=== PATIENT | male | born 1965 | race African-American/Black ===

== ENCOUNTER 2023-11-27 17:52 | Emergency (ER) | payer MEDICAID ==
[~2023-11-27] VITALS: Ht 137.2 cm; Wt 125.0 kg
[~2023-11-27 17:52] MED LIST: AMLO10TA4 PO; AMLO10TA80 MT; ASPI-1497 MT; BISO5TAB13 MT; CLOP75TA33 MT; COR12 PO; FURO-151 PO; FURO40TA5 MT; GABA-529 MT; HYDR100T11 MT; HYDR25TA78 PO; ISOS30TA91 MT; LOSA100T33 MT; LOSA25TA26 PO; NITR0.4T49 SL; PANT40TA51 MT; ROSU20TA2 MT; SEVE800T8 MT
[2023-11-27 17:54] VITALS: O2SAT 98
[2023-11-27] MEDS: MORPHINE SULFATE 4 MG/ML INJ (FOR IV/IM USE) IV ONE (18:54)
[2023-11-27] MEDS: ONDANSETRON HCL 4MG/2ML INJ IV ONE (18:54)
[2023-11-27 19:00] LABS: CHLORIDE 99 mEq/L (98-107); POTASSIUM 4.3 mEq/L (3.5-5.1); SODIUM 135 mEq/L (136-145)
[2023-11-27 19:01] LABS: CALCIUM 8.8 mg/dL (8.7-10.4); CARBON DIOXIDE 26 mEq/L (21-32)
[2023-11-27 19:06] LABS: GLUCOSE 142 mg/dL (70-105); UREA NITROGEN BLOOD 42 mg/dL (9-23)
[2023-11-27 19:10] LABS: CREATININE 6.4 mg/dL (0.6-1.3); TROPONIN I HIGH SENSITIVITY 100 ng/L (3.0-53)
[2023-11-27 19:20] LABS: HEMATOCRIT. 30.5 % (42.0-52.0); HEMOGLOBIN. 9.9 g/dL (14.0-18.0); MEAN CORPUSCULAR HEMOGLOBIN 27.9 pg (28.0-32.0); MEAN CORPUSCULAR HGB CONC 32.3 g/dL (31.0-37.0); MEAN CORPUSCULAR VOLUME 86.1 fL (80.0-94.0); MEAN PLATELET VOLUME 8.9 fl (7.4-10.4); PLATELET 163 x1000/uL (130-400); RED BLOOD CELL COUNT 3.54 mill/uL (4.7-6.1); WHITE BLOOD COUNT 8.7 x1000/uL (4.5-11.0)
[2023-11-27 19:22] LABS: DIFFERENTIAL COMMENT 1
[2023-11-27 19:30] LABS: INR 1.2; PARTIAL THROMBOPLASTIN TIME 30.2 sec (23.4-31.0)
[2023-11-27 19:42] LABS: ANISOCYTOSIS 2+; PLATELET ESTIMATE NORMAL
[2023-11-27 20:45] LABS: TROPONIN I HIGH SENSITIVITY 100 ng/L (3.0-53)
[2023-11-27 22:18] VITALS: BP 159/89; PULSE 67; RESP 15; TEMP 37.00296; O2SAT 100
[2023-11-28] MEDS ORDERED: CLONIDINE 0.1MG TABLET PO PRN (00:30)
[2023-11-28] MEDS ORDERED: DIPHENHYDRAMINE 50MG/ML VIAL IV PRN (00:30)
[2023-11-28] MEDS ORDERED: ONDANSETRON HCL 4MG/2ML INJ IV PRN (00:30)
[2023-11-28] MEDS ORDERED: ZOLPIDEM TARTRATE 5MG TABLET PO PRN (00:30)
[2023-11-28] MEDS ORDERED: ACETAMINOPHEN 325MG TABLET PO PRN ×2 (00:30)
[2023-11-28] MEDS ORDERED: SODIUM CHLORIDE 0.9% 3ML FLUSH IVF SCH (06:00)
[2023-11-28] MEDS ORDERED: CARVEDILOL 12.5MG TABLET PO SCH (09:00)
[2023-11-28] MEDS ORDERED: TAMSULOSIN HCL 0.4MG SR CAPSULE PO SCH (09:00)
[2023-11-28] MEDS ORDERED: LOSARTAN 50 MG TABLET PO SCH (09:00)
[2023-11-28] MEDS ORDERED: ISOSORBIDE MONONITRATE 30MG TABLET SR 24HR PO SCH (09:00)
[2023-11-28] MEDS ORDERED: ASPIRIN 81MG EC TABLET PO SCH (09:00)
[2023-11-28] MEDS ORDERED: ATORVASTATIN CALCIUM 20MG TABLET PO SCH (21:00)
== END 2023-11-27 22:25 | disposition short-term general hospital (02) ==
LOC: ER 17:52
DX: R07.89 Other chest pain (principal); J81.0 Acute pulmonary edema; N18.6 End stage renal disease; I50.9 Heart failure, unspecified; Z99.2 Dependence on renal dialysis; Z79.899 Other long term (current) drug therapy; Z95.1 Presence of aortocoronary bypass graft; Z79.02 Long term (current) use of antithrombotics/antiplatelets; Z79.82 Long term (current) use of aspirin
CPT/HCPCS: 80048; 83880; 83690; 85025; 85610; 85730; 84484; 36415; 71045; 93005; 96374; 96375; 99291; J2405; J2270; Z7610

== ENCOUNTER 2024-01-14 18:13 | Inpatient (IN) | payer MEDICAID ==
[~2024-01-14] VITALS: Ht 152.4 cm; Wt 90.7 kg
[2024-01-14] MEDS: PIPERACILLIN/TAZO 3.375G/50ML 50 ML IV ONE (19:24)
[2024-01-14 19:27] VITALS: RESP 16
[2024-01-14 19:36] LABS: HEMATOCRIT. 31.8 % (42.0-52.0); MEAN CORPUSCULAR HGB CONC 31.4 g/dL (31.0-37.0); MEAN CORPUSCULAR VOLUME 82.8 fL (80.0-94.0); MEAN PLATELET VOLUME 8.6 fl (7.4-10.4); PLATELET 199 x1000/uL (130-400); RED BLOOD CELL COUNT 3.85 mill/uL (4.7-6.1); WHITE BLOOD COUNT 5.5 x1000/uL (4.5-11.0)
[2024-01-14 19:38] LABS: BG BASE EXCESS -1.5 mmol/L (-2.0-3.0); BG CARBOXYHEMOGLOBIN 0.6 % (0.5-1.5); BG DEOXYHEMOGLOBIN 22.2 % (0.0-5.0); BG FRACTION INSPIRED OXYGEN 60; BG HCO3 ACT 25.7 mmol/L (21.0-28.0); BG METHEMOGLOBIN 0.3 % (0.5-1.5); BG OXYGEN SATURATION 77.6 % (94.0-98.0); BG OXYHEMOGLOBIN 76.9 % (94.0-98.0); BG PCO2 55.8 mmHg (35.0-48.0); BG PH 7.282 (7.350-7.450); BG SAMPLE SITE RIGHT RADIAL; BG TOTAL HEMOGLOBIN 10.8 g/dL (13.5-17.5); BG VENT MODE MASK - BIPAP
[2024-01-14 19:39] LABS: DIFFERENTIAL COMMENT 1
[2024-01-14 19:40] LABS: CHLORIDE 100 mEq/L (98-107); POTASSIUM 4.8 mEq/L (3.5-5.1); SODIUM 139 mEq/L (136-145)
[2024-01-14 19:41] LABS: CLARITY URINE TURBID (CLEAR); COLOR URINE ORANGE (YELLOW); GLUCOSE URINE NEGATIVE (NEGATIVE); KETONES URINE NEGATIVE (NEGATIVE); LEUKOCYTE ESTERASE URINE 3+ (NEGATIVE); NITRITE URINE NEGATIVE (NEGATIVE); OCCULT BLOOD URINE 3+ (NEGATIVE); PH URINE >=9.0 (4.5-8.0); PROTEIN URINE 4+ (NEGATIVE); SPECIFIC GRAVITY URINE 1.019 (1.005-1.030)
[2024-01-14 19:41] LABS: CALCIUM 7.7 mg/dL (8.7-10.4); CARBON DIOXIDE 30 mEq/L (21-32)
[2024-01-14 19:45] LABS: INR 1.2; PARTIAL THROMBOPLASTIN TIME 30.3 sec (23.4-31.0)
[2024-01-14 19:46] LABS: GLUCOSE 140 mg/dL (70-105); UREA NITROGEN BLOOD 76 mg/dL (9-23)
[2024-01-14 19:48] LABS: ALANINE AMINOTRANSFERASE 19 IU/L (10-49); ALBUMIN 4.1 g/dL (3.2-4.8); ASPARTATE AMINOTRANSFERASE 19 IU/L (<34); BILIRUBIN DIRECT 0.1 mg/dL (<=3.0); BILIRUBIN TOTAL 0.3 mg/dL (0.1-1.0)
[2024-01-14 19:49] LABS: PROTEIN TOTAL 8.3 g/dL (6.0-8.3)
[2024-01-14 19:50] VITALS: RESP 16
[2024-01-14 19:57] LABS: HYPOCHROMASIA 2+; MICROCYTOSIS 2+; PLATELET ESTIMATE NORMAL; TARGET CELLS 1+
[2024-01-14 20:07] LABS: BACTERIA URINE 2+; RBC URINE 15-25 /hpf (0-2); SQUAMOUS EPITHELIAL CELL URINE 2+ /lpf (RARE/1+); TRIPLE PHOSPHATE CRYSTAL URINE 2+ /lpf; WBC URINE 25-50 /hpf (0-2)
[2024-01-14 20:42] LABS: CREATININE 8.1 mg/dL (0.6-1.3)
[2024-01-14 20:43] LABS: TROPONIN I HIGH SENSITIVITY 80 ng/L (3.0-53)
[2024-01-14] MEDS: VANCOMYCIN 1G PREMIX 200 ML IV ONE (21:12)
[2024-01-14] MEDS ORDERED: CLONIDINE 0.1MG TABLET PO PRN (21:45)
[2024-01-14] MEDS ORDERED: IPRATROPIUM/ALBUTEROL 0.5-3(2.5)MG/3ML NEB HHN PRN (21:45)
[2024-01-14] MEDS ORDERED: DEXTROSE 50% WATER 50ML SYRINGE IV PRN (21:45)
[2024-01-14] MEDS ORDERED: ONDANSETRON HCL 4MG/2ML INJ IV PRN (21:45)
[2024-01-14] MEDS ORDERED: ACETAMINOPHEN 325MG TABLET PO PRN ×2 (21:45)
[2024-01-14 22:10] LABS: BG BASE EXCESS 1.3 mmol/L (-2.0-3.0); BG DEOXYHEMOGLOBIN 0.2 % (0.0-5.0); BG FRACTION INSPIRED OXYGEN 100; BG HCO3 ACT 27.2 mmol/L (21.0-28.0); BG METHEMOGLOBIN 0.1 % (0.5-1.5); BG OXYGEN SATURATION 99.8 % (94.0-98.0); BG OXYHEMOGLOBIN 98.7 % (94.0-98.0); BG PCO2 48.9 mmHg (35.0-48.0); BG PH 7.363 (7.350-7.450); BG PO2 214.7 mmHg (83.0-108.0); BG SAMPLE SITE RIGHT RADIAL; BG TOTAL HEMOGLOBIN 11.4 g/dL (13.5-17.5); BG TOTAL RESPIRATORY RATE 16 b/min; BG VENT MODE MASK - BIPAP
[2024-01-14] MEDS ORDERED: NITROGLYCERIN 0.4MG TABLET SL SL PRN (22:15)
[2024-01-14 22:33] VITALS: RESP 21
[2024-01-14 23:04] LABS: IRON 62 ug/dL (65-175)
[2024-01-14 23:05] LABS: LDL CHOLESTEROL 26 mg/dL (5-100); TRIGLYCERIDE 47 mg/dL (0-150)
[2024-01-14 23:06] LABS: CHOLESTEROL 80 mg/dL (<200); HDL CHOLESTEROL 37 mg/dL (>55); PHOSPHORUS 7.2 mg/dL (2.5-4.9)
[2024-01-14 23:07] LABS: TOTAL IRON BINDING CAPACITY 304 ug/dl (250-425)
[2024-01-14 23:09] LABS: T4 FREE 1.13 ng/dL (0.89-1.76); THYROID STIMULATING HORMONE 1.67 uIU/mL (0.55-4.78)
[2024-01-14] MEDS: FUROSEMIDE 40MG/4ML VIAL IVP NR (23:13)
[2024-01-15] VITALS (11 sets, daily range): BP systolic 139–162; BP diastolic 66–92; PULSE 73–81; RESP 10–21; TEMP 36.6696–37.16964; O2SAT 92–100
[2024-01-15 02:36] LABS: TROPONIN I HIGH SENSITIVITY 95 ng/L (3.0-53)
[2024-01-15 03:27] LABS: FERRITIN 725 ng/mL (22-322); FOLIC ACID (FOLATE) SERUM 4.24 ng/mL (>5.38)
[2024-01-15 03:28] LABS: VITAMIN B12 SERUM 177 pg/mL (211-911)
[2024-01-15 04:36] LABS: HEMATOCRIT 32.6 % (42.0-52.0); MEAN CORPUSCULAR HEMOGLOBIN 25.6 pg (28.0-32.0); MEAN CORPUSCULAR HGB CONC 30.7 g/dL (31.0-37.0); MEAN CORPUSCULAR VOLUME 83.4 fL (80.0-94.0); PLATELET 177 x1000/uL (130-400); RED CELL DISTRIBUTION WIDTH 21.3 % (11.6-14.6); WHITE BLOOD COUNT 5.1 x1000/uL (4.5-11.0)
[2024-01-15 04:46] LABS: POTASSIUM 4.9 mEq/L (3.5-5.1)
[2024-01-15 04:48] LABS: CALCIUM 7.4 mg/dL (8.7-10.4)
[2024-01-15 04:58] LABS: CREATININE 7.9 mg/dL (0.6-1.3)
[2024-01-15 06:07] LABS: HEMATOCRIT. 33.2 % (42.0-52.0); HEMOGLOBIN. 10.3 g/dL (14.0-18.0); MEAN CORPUSCULAR HEMOGLOBIN 25.8 pg (28.0-32.0); MEAN CORPUSCULAR HGB CONC 30.9 g/dL (31.0-37.0); MEAN CORPUSCULAR VOLUME 83.7 fL (80.0-94.0); MEAN PLATELET VOLUME 8.2 fl (7.4-10.4); PLATELET 182 x1000/uL (130-400); RED BLOOD CELL COUNT 3.97 mill/uL (4.7-6.1); RED CELL DISTRIBUTION WIDTH 21.3 % (11.6-14.6); WHITE BLOOD COUNT 6.3 x1000/uL (4.5-11.0)
[2024-01-15 06:16] LABS: DIFFERENTIAL COMMENT 1
[2024-01-15 07:01] LABS: PLATELET ESTIMATE NORMAL
[2024-01-15] MEDS: INSULIN LISPRO 100 UNITS/ML SUBCUT SCH (08:20)
[2024-01-15] MEDS ORDERED: ENOXAPARIN 30MG/0.3ML SYR SUBCUT SCH (09:00)
[2024-01-15] MEDS ORDERED: PIPERACILLIN/TAZO 3.375G/50ML 50 ML IV SCH (09:00)
[2024-01-15 09:12] LABS: BG BASE EXCESS -2.8 mmol/L (-2.0-3.0); BG CARBOXYHEMOGLOBIN 0.3 % (0.5-1.5); BG DEOXYHEMOGLOBIN 1.4 % (0.0-5.0); BG FRACTION INSPIRED OXYGEN 70; BG HCO3 ACT 24.7 mmol/L (21.0-28.0); BG METHEMOGLOBIN 0.3 % (0.5-1.5); BG OXYGEN SATURATION 98.6 % (94.0-98.0); BG PCO2 56.2 mmHg (35.0-48.0); BG PH 7.261 (7.350-7.450); BG PO2 128.8 mmHg (83.0-108.0); BG SAMPLE SITE RIGHT BRACHIAL; BG VENT MODE MASK - BIPAP
[2024-01-15] MEDS: BLOOD SUGAR DIAGNOSTIC STRIP TEST SCH (09:41)
[2024-01-15] MEDS: GABAPENTIN 100MG CAPSULE PO SCH (11:18)
[2024-01-15] MEDS: FUROSEMIDE 40MG/4ML VIAL IVP SCH (11:18)
[2024-01-15] MEDS: HYDRALAZINE HCL 100MG TABLET PO SCH (11:18)
[2024-01-15] MEDS: ASPIRIN 81MG EC TABLET PO SCH (11:18)
[2024-01-15] MEDS: SEVELAMER CARBONATE 800 MG TABLET PO SCH (11:18)
[2024-01-15] MEDS: ISOSORBIDE MONONITRATE 30MG TABLET SR 24HR PO SCH (11:19)
[2024-01-15] MEDS: AMLODIPINE 10MG TABLET PO SCH (11:56)
[2024-01-15] MEDS: LOSARTAN 100 MG TABLET PO SCH (11:57)
[2024-01-15] MEDS: PANTOPRAZOLE 40MG DR TABLET PO SCH (11:57)
[2024-01-15] MEDS: IPRATROPIUM/ALBUTEROL 0.5-3(2.5)MG/3ML NEB HHN SCH (12:00)
[2024-01-15] MEDS: ENOXAPARIN 30MG/0.3ML SYR SUBCUT SCH (12:26)
[2024-01-15 12:27] LABS: HEPATITIS B SURFACE ANTIGEN NEGATIVE (Negative)
[2024-01-15 12:48] LABS: HEPATITIS A AB IGM NEGATIVE (Negative); HEPATITIS B CORE AB IGM NEGATIVE (Negative)
[2024-01-15 12:49] LABS: HEPATITIS C AB NON REACTIVE (Neg) (Negative)
[2024-01-15] MEDS: PIPERACILLIN/TAZO 3.375G/100ML 100 ML IV SCH (15:11)
[2024-01-15] MEDS: FOLIC ACID/VITAMIN B COMP W-C TABLET PO SCH (18:27)
[2024-01-15] MEDS: ATORVASTATIN CALCIUM 40MG TABLET PO SCH (21:55)
[2024-01-16] VITALS (22 sets, daily range): BP systolic 93–162; BP diastolic 54–96; PULSE 75–89; RESP 11–20; TEMP 36.50292–37.05852; O2SAT 64–100
[2024-01-16 05:30] LABS: HEMATOCRIT. 31.3 % (42.0-52.0); HEMOGLOBIN. 9.6 g/dL (14.0-18.0); MEAN CORPUSCULAR HEMOGLOBIN 25.8 pg (28.0-32.0); MEAN CORPUSCULAR HGB CONC 30.5 g/dL (31.0-37.0); MEAN CORPUSCULAR VOLUME 84.4 fL (80.0-94.0); MEAN PLATELET VOLUME 8.4 fl (7.4-10.4); PLATELET 161 x1000/uL (130-400); RED BLOOD CELL COUNT 3.71 mill/uL (4.7-6.1); WHITE BLOOD COUNT 5.6 x1000/uL (4.5-11.0)
[2024-01-16 05:36] LABS: POTASSIUM 5.5 mEq/L (3.5-5.1)
[2024-01-16 05:37] LABS: CALCIUM 7.5 mg/dL (8.7-10.4)
[2024-01-16 05:58] LABS: CREATININE 8.9 mg/dL (0.6-1.3)
[2024-01-16 06:10] LABS: DIFFERENTIAL COMMENT 1
[2024-01-16] MEDS ORDERED: SODIUM CHLORIDE 0.9% 250 ML IV NR (14:30)
[2024-01-16] MEDS: CLOPIDOGREL 75MG TABLET PO SCH (14:32)
[2024-01-16] MEDS: METOCLOPRAMIDE HCL 10MG/2ML VIAL IV NR (14:40)
[2024-01-17 06:44] LABS: ANISOCYTOSIS 2+; PLATELET ESTIMATE NORMAL
== END 2024-01-16 23:00 | disposition home or self-care (01) | DRG 194 ==
LOC: ER 18:13 → EDBEDREQ 18:46 → MICUSO 20:55 → EDBEDREQTM 20:58 → EDBEDREQ 20:58 → 6EST 01-15 09:52 → 5EST 01-15 10:05
PROVIDERS: ADMIT Internal Medicine; ATTEND Internal Medicine
PROC: 5A09357 Assistance with Respiratory Ventilation, Less than 24 Consecutive Hours, Continuous Positive Airway Pressure (ICD-10-PCS; 2024-01-14)
PROC: 5A1D70Z Performance of Urinary Filtration, Intermittent, Less than 6 Hours Per Day (ICD-10-PCS; principal; 2024-01-16)
DX: I13.2 Hypertensive heart and chronic kidney disease with heart failure and with stage 5 chronic kidney disease, or end stage renal disease (principal); J96.01 Acute respiratory failure with hypoxia; K56.609 Unspecified intestinal obstruction, unspecified as to partial versus complete obstruction; I21.A1 Myocardial infarction type 2; N18.6 End stage renal disease; D63.1 Anemia in chronic kidney disease; E66.2 Morbid (severe) obesity with alveolar hypoventilation; E11.22 Type 2 diabetes mellitus with diabetic chronic kidney disease; E11.51 Type 2 diabetes mellitus with diabetic peripheral angiopathy without gangrene; Z20.822 Contact with and (suspected) exposure to COVID-19; I50.23 Acute on chronic systolic (congestive) heart failure; N39.0 Urinary tract infection, site not specified; I45.10 Unspecified right bundle-branch block; E53.8 Deficiency of other specified B group vitamins; J96.02 Acute respiratory failure with hypercapnia; Z68.43 Body mass index [BMI] 50.0-59.9, adult; E11.65 Type 2 diabetes mellitus with hyperglycemia; I25.10 Atherosclerotic heart disease of native coronary artery without angina pectoris; Z99.2 Dependence on renal dialysis; Z89.512 Acquired absence of left leg below knee; Z89.511 Acquired absence of right leg below knee; Z79.02 Long term (current) use of antithrombotics/antiplatelets; Z95.1 Presence of aortocoronary bypass graft; Z79.82 Long term (current) use of aspirin; Z79.84 Long term (current) use of oral hypoglycemic drugs; Z79.899 Other long term (current) drug therapy; Z99.3 Dependence on wheelchair
CPT/HCPCS: 36415; 36600; 71045; 80048; 80061; 80076; 81003; 82375; 82607; 82728; 82746; 82805; 82962; 83036; 83540; 83550; 83605; 83735; 83880; 84100; 84145; 84439; 84443; 84484; 85025; 85027; 86705; 86709; 87077; 87186; 87340; 87426; 90935; 93005; 93306; 94660; 99291; J1650; J1815; J1940; J2543; J2765; J3370

== ENCOUNTER 2024-02-17 01:48 | Inpatient (IN) | payer MEDICARE, MEDICAID ==
[2024-02-17] VITALS (14 sets, daily range): BP systolic 132–185; BP diastolic 74–110; PULSE 69–87; RESP 18–24; TEMP 36.418–37.11408; O2SAT 90–100
[~2024-02-17] VITALS: Ht 137.2 cm; Wt 122.9 kg
[2024-02-17 05:32] LABS: CHLORIDE 101 mEq/L (98-107); SODIUM 138 mEq/L (136-145)
[2024-02-17 05:33] LABS: CALCIUM 7.7 mg/dL (8.7-10.4); CARBON DIOXIDE 24 mEq/L (21-32)
[2024-02-17 05:38] LABS: GLUCOSE 101 mg/dL (70-105); UREA NITROGEN BLOOD 100 mg/dL (9-23)
[2024-02-17 05:47] LABS: ETHANOL BLOOD < 10 mg/dL (<10)
[2024-02-17 05:49] LABS: POTASSIUM 7.8 mEq/L (3.5-5.1)
[2024-02-17 05:50] LABS: CREATININE 10.8 mg/dL (0.6-1.3); TROPONIN I HIGH SENSITIVITY 73 ng/L (3.0-53)
[2024-02-17 06:06] LABS: BASOPHILS % 0.8 % (0.0-2.0); EOSINOPHILS % 1.1 % (0.0-5.0); HEMATOCRIT. 32.7 % (42.0-52.0); LYMPHOCYTES % 10.8 % (20.0-50.0); MEAN CORPUSCULAR HEMOGLOBIN 25.7 pg (28.0-32.0); MEAN CORPUSCULAR HGB CONC 30.5 g/dL (31.0-37.0); MEAN CORPUSCULAR VOLUME 84.1 fL (80.0-94.0); MEAN PLATELET VOLUME 8.6 fl (7.4-10.4); MONOCYTES % 14.5 % (2.0-8.0); NEUTROPHILS % 72.8 % (40.0-76.0); PLATELET 201 x1000/uL (130-400); RED BLOOD CELL COUNT 3.88 mill/uL (4.7-6.1); RED CELL DISTRIBUTION WIDTH 21.4 % (11.6-14.6); WHITE BLOOD COUNT 6.6 x1000/uL (4.5-11.0)
[2024-02-17] MEDS: SODIUM ZIRCONIUM CYCLOSILICATE 10GM/PACKET PO NR (07:00)
[2024-02-17] MEDS: FUROSEMIDE 40MG/4ML VIAL IV NR (07:00)
[2024-02-17] MEDS: SODIUM BICARBONATE 8.4% 50MEQ/50ML SYR IV NR (07:01)
[2024-02-17] MEDS: DEXTROSE 50% WATER 50ML SYRINGE IV NR (07:01)
[2024-02-17] MEDS: INSULIN REGULAR (HUMULIN R) 1000UNITS/10ML VIAL IV NR (07:03)
[2024-02-17] MEDS: ASPIRIN 325MG EC TABLET PO NR (07:03)
[2024-02-17] MEDS: CALCIUM GLUCONATE 100MG/ML 10ML VIAL IV NR (07:04)
[2024-02-17 11:12] LABS: HEMATOCRIT. 32.5 % (42.0-52.0); HEMOGLOBIN. 9.7 g/dL (14.0-18.0); MEAN CORPUSCULAR HEMOGLOBIN 25.9 pg (28.0-32.0); MEAN CORPUSCULAR VOLUME 86.2 fL (80.0-94.0); MEAN PLATELET VOLUME 7.9 fl (7.4-10.4); PLATELET 175 x1000/uL (130-400); RED BLOOD CELL COUNT 3.77 mill/uL (4.7-6.1); RED CELL DISTRIBUTION WIDTH 20.9 % (11.6-14.6); WHITE BLOOD COUNT 7.1 x1000/uL (4.5-11.0)
[2024-02-17 11:14] LABS: DIFFERENTIAL COMMENT 1
[2024-02-17 11:38] LABS: ANISOCYTOSIS 2+; PLATELET ESTIMATE NORMAL
[2024-02-17] MEDS: IPRATROPIUM/ALBUTEROL 0.5-3(2.5)MG/3ML NEB HHN SCH (11:45)
[2024-02-17] MEDS ORDERED: CLONIDINE 0.1MG TABLET PO PRN (11:45)
[2024-02-17] MEDS ORDERED: IPRATROPIUM/ALBUTEROL 0.5-3(2.5)MG/3ML NEB HHN PRN ×3 (11:45→12:30)
[2024-02-17] MEDS ORDERED: ACETAMINOPHEN 325MG TABLET PO PRN (11:45)
[2024-02-17] MEDS ORDERED: ONDANSETRON HCL 4MG/2ML INJ IV PRN (11:45)
[2024-02-17 11:49] LABS: HEPATITIS B SURFACE ANTIGEN NEGATIVE (Negative)
[2024-02-17] MEDS ORDERED: DEXTROSE 50% WATER 50ML SYRINGE IV PRN (12:00)
[2024-02-17] MEDS ORDERED: IPRATROPIUM/ALBUTEROL 0.5-3(2.5)MG/3ML NEB HHN SCH (12:00)
[2024-02-17] MEDS: SODIUM CHLORIDE 3% FOR INH 15ML NEB INH NR (12:00)
[2024-02-17] MEDS: FUROSEMIDE 40MG/4ML VIAL IVP NR (12:04)
[2024-02-17 12:09] LABS: HEPATITIS A AB IGM NEGATIVE (Negative)
[2024-02-17 12:10] LABS: HEPATITIS B CORE AB IGM NEGATIVE (Negative); HEPATITIS C AB NON REACTIVE (Neg) (Negative)
[2024-02-17] MEDS: IPRATROPIUM/ALBUTEROL 0.5-3(2.5)MG/3ML NEB HHN NR (12:10)
[2024-02-17] MEDS ORDERED: BLOOD SUGAR DIAGNOSTIC STRIP TEST SCH (13:00)
[2024-02-17 13:39] LABS: CREATINE KINASE MB FRACTION 2.5 ng/mL (0.5-3.6)
[2024-02-17 14:02] LABS: BG BASE EXCESS -9.1 mmol/L (-2.0-3.0); BG CARBOXYHEMOGLOBIN 1.2 % (0.5-1.5); BG FRACTION INSPIRED OXYGEN 36; BG HCO3 ACT 19.4 mmol/L (21.0-28.0); BG METHEMOGLOBIN 0.3 % (0.5-1.5); BG OXYGEN SATURATION 93.9 % (94.0-98.0); BG OXYHEMOGLOBIN 92.5 % (94.0-98.0); BG PCO2 53.8 mmHg (35.0-48.0); BG PH 7.174 (7.350-7.450); BG PO2 85.5 mmHg (83.0-108.0); BG SAMPLE SITE RIGHT RADIAL; BG TOTAL HEMOGLOBIN 11.1 g/dL (13.5-17.5); BG VENT MODE NASAL CANNULA
[2024-02-17 14:59] LABS: CHLORIDE 103 mEq/L (98-107); SODIUM 139 mEq/L (136-145)
[2024-02-17 15:00] LABS: CARBON DIOXIDE 18 mEq/L (21-32)
[2024-02-17 15:01] LABS: CALCIUM 7.6 mg/dL (8.7-10.4)
[2024-02-17 15:05] LABS: GLUCOSE 77 mg/dL (70-105)
[2024-02-17 15:06] LABS: UREA NITROGEN BLOOD 96 mg/dL (9-23)
[2024-02-17 15:08] LABS: CREATINE KINASE 112 IU/L (46-171); TROPONIN I HIGH SENSITIVITY 92 ng/L (3.0-53)
[2024-02-17 15:10] LABS: POTASSIUM 7.2 mEq/L (3.5-5.1)
[2024-02-17 15:12] LABS: CREATININE 11.5 mg/dL (0.6-1.3); PHOSPHORUS 10.5 mg/dL (2.5-4.9)
[2024-02-17] MEDS: BLOOD SUGAR DIAGNOSTIC STRIP TEST SCH (16:40)
[2024-02-17] MEDS: INSULIN LISPRO 100 UNITS/ML SUBCUT SCH (17:10)
[2024-02-17] MEDS: FUROSEMIDE 40MG/4ML VIAL IV SCH (19:07)
[2024-02-17] MEDS: ENOXAPARIN 40MG/0.4ML SYR SUBCUT SCH (19:07)
[2024-02-17 19:54] LABS: INR 1.2; PARTIAL THROMBOPLASTIN TIME 30.4 sec (23.4-31.0); PROTHROMBIN TIME 12.9 sec (9.6-11.0)
[2024-02-17 19:59] LABS: POTASSIUM 6.1 mEq/L (3.5-5.1)
[2024-02-17 20:01] LABS: CALCIUM 8.1 mg/dL (8.7-10.4)
[2024-02-17 20:07] LABS: CREATINE KINASE MB FRACTION 3.1 ng/mL (0.5-3.6)
[2024-02-17 20:40] LABS: CREATININE 9.3 mg/dL (0.6-1.3)
[2024-02-17] MEDS: ATORVASTATIN CALCIUM 40MG TABLET PO SCH (22:37)
[2024-02-17] MEDS: HYDRALAZINE 20MG/ML VIAL IV PRN (22:37)
[2024-02-17] MEDS ORDERED: MIDODRINE HCL 5MG TABLET PO PRN (23:15)
[2024-02-18] VITALS (16 sets, daily range): BP systolic 138–194; BP diastolic 64–107; PULSE 62–89; RESP 11–26; TEMP 36.22512–37.00296; O2SAT 91–100
[2024-02-18] MEDS: CLONIDINE 0.1MG TABLET PO NR (03:02)
[2024-02-18 05:41] LABS: CALCIUM 8.3 mg/dL (8.7-10.4)
[2024-02-18 05:44] LABS: CREATINE KINASE MB FRACTION 2.6 ng/mL (0.5-3.6)
[2024-02-18 05:46] LABS: BASOPHILS % 0.8 % (0.0-2.0); DIFFERENTIAL COMMENT 0; EOSINOPHILS % 0.3 % (0.0-5.0); HEMATOCRIT. 32.6 % (42.0-52.0); HEMOGLOBIN. 9.8 g/dL (14.0-18.0); LYMPHOCYTES % 9.4 % (20.0-50.0); MEAN CORPUSCULAR HEMOGLOBIN 25.7 pg (28.0-32.0); MEAN CORPUSCULAR HGB CONC 30.2 g/dL (31.0-37.0); MEAN CORPUSCULAR VOLUME 85.2 fL (80.0-94.0); MEAN PLATELET VOLUME 8.7 fl (7.4-10.4); MONOCYTES % 14.6 % (2.0-8.0); NEUTROPHILS % 74.9 % (40.0-76.0); PLATELET 183 x1000/uL (130-400); RED BLOOD CELL COUNT 3.82 mill/uL (4.7-6.1); RED CELL DISTRIBUTION WIDTH 21.4 % (11.6-14.6); WHITE BLOOD COUNT 5.8 x1000/uL (4.5-11.0)
[2024-02-18 06:01] LABS: CREATININE 10.3 mg/dL (0.6-1.3)
[2024-02-18 06:03] LABS: POTASSIUM 6.3 mEq/L (3.5-5.1)
[2024-02-18] MEDS: ALBUTEROL (0.083%) 2.5MG/3ML NEB HHN NR (06:30)
[2024-02-18] MEDS: CALCIUM CHLORIDE 1GM/10ML SYR IV NR (07:07)
[2024-02-18] MEDS: SODIUM ZIRCONIUM CYCLOSILICATE 10GM/PACKET PO NR ×2 (07:07→11:36)
[2024-02-18] MEDS ORDERED: PANTOPRAZOLE SODIUM 40 MG/VIAL IV SCH (09:00)
[2024-02-18] MEDS: ASPIRIN 81MG TABLET PO SCH (09:37)
[2024-02-18] MEDS: AMLODIPINE 10MG TABLET PO SCH (09:38)
[2024-02-18 11:08] LABS: BG BASE EXCESS -6.2 mmol/L (-2.0-3.0); BG CARBOXYHEMOGLOBIN 1.4 % (0.5-1.5); BG FRACTION INSPIRED OXYGEN 32; BG HCO3 ACT 20.5 mmol/L (21.0-28.0); BG OXYGEN SATURATION 92.9 % (94.0-98.0); BG OXYHEMOGLOBIN 91.6 % (94.0-98.0); BG PCO2 45.8 mmHg (35.0-48.0); BG PH 7.269 (7.350-7.450); BG PO2 75.8 mmHg (83.0-108.0); BG SAMPLE SITE RIGHT RADIAL; BG VENT MODE NASAL CANNULA
[2024-02-18] MEDS: SODIUM BICARBONATE 8.4% 50MEQ/50ML SYR IV NR (11:36)
[2024-02-18] MEDS: DEXTROSE 50% WATER 50ML SYRINGE IV NR (11:38)
[2024-02-18] MEDS: INSULIN REGULAR (HUMULIN R) 1000UNITS/10ML VIAL IV NR (11:38)
[2024-02-18 13:00] LABS: ALANINE AMINOTRANSFERASE 15 IU/L (10-49); ALBUMIN 3.9 g/dL (3.2-4.8); ASPARTATE AMINOTRANSFERASE 18 IU/L (<34); BILIRUBIN DIRECT 0.1 mg/dL (<=3.0); BILIRUBIN TOTAL 0.3 mg/dL (0.1-1.0); PROTEIN TOTAL 7.9 g/dL (6.0-8.3)
[2024-02-18 13:34] LABS: POTASSIUM 6.2 mEq/L (3.5-5.1); TROPONIN I HIGH SENSITIVITY 225 ng/L (3.0-53)
[2024-02-18] MEDS: HYDRALAZINE HCL 25MG TABLET PO SCH ×2 (14:18→21:11)
[2024-02-18] MEDS ORDERED: ENALAPRIL 0.625 MG in DEXTROSE 5% WATER 49.5 ML IV PRN (19:15)
[2024-02-18] MEDS ORDERED: CLONIDINE 0.2MG TABLET PO PRN (19:15)
[2024-02-18] MEDS ORDERED: ENALAPRIL 1.25MG/ML VIAL 1ML IV PRN (19:30)
[2024-02-18] MEDS: LOSARTAN 25 MG TABLET PO SCH (21:11)
[2024-02-18] MEDS: FAMOTIDINE 20MG TABLET PO SCH (21:11)
[2024-02-18 22:04] LABS: POTASSIUM 5.9 mEq/L (3.5-5.1)
[2024-02-19] VITALS (21 sets, daily range): BP systolic 123–180; BP diastolic 80–134; PULSE 71–89; RESP 13–25; TEMP 36.33624–37.00296; O2SAT 88–100
[2024-02-19 06:54] LABS: CALCIUM 8.2 mg/dL (8.7-10.4)
[2024-02-19 06:55] LABS: HEMATOCRIT. 32.7 % (42.0-52.0); MEAN CORPUSCULAR HGB CONC 30.4 g/dL (31.0-37.0); MEAN CORPUSCULAR VOLUME 85.4 fL (80.0-94.0); MEAN PLATELET VOLUME 8.4 fl (7.4-10.4); PLATELET 165 x1000/uL (130-400); RED BLOOD CELL COUNT 3.83 mill/uL (4.7-6.1); RED CELL DISTRIBUTION WIDTH 21.4 % (11.6-14.6); WHITE BLOOD COUNT 7.1 x1000/uL (4.5-11.0)
[2024-02-19 07:03] LABS: CREATININE 10.9 mg/dL (0.6-1.3); POTASSIUM 6.3 mEq/L (3.5-5.1)
[2024-02-19 07:04] LABS: DIFFERENTIAL COMMENT 1
[2024-02-19 07:56] LABS: CLARITY URINE TURBID (CLEAR); COLOR URINE YELLOW (YELLOW); GLUCOSE URINE NEGATIVE (NEGATIVE); KETONES URINE NEGATIVE (NEGATIVE); LEUKOCYTE ESTERASE URINE 3+ (NEGATIVE); NITRITE URINE NEGATIVE (NEGATIVE); OCCULT BLOOD URINE 2+ (NEGATIVE); PH URINE >=9.0 (4.5-8.0); PROTEIN URINE 4+ (NEGATIVE); SPECIFIC GRAVITY URINE 1.023 (1.005-1.030); UROBILINOGEN URINE 0.2 E.U./dL (0.2-1.0)
[2024-02-19 08:15] LABS: *AMPHETAMINES SCREEN URINE NEGATIVE (NEGATIVE); *BARBITURATES SCREEN URINE NEGATIVE (NEGATIVE); *BENZODIAZEPINES SCREEN URINE NEGATIVE (NEGATIVE); *COCAINE SCREEN URINE NEGATIVE (NEGATIVE); METHADONE URINE SCREEN NEGATIVE (NEGATIVE)
[2024-02-19 08:16] LABS: CANNABINOID URINE SCREEN NEGATIVE (NEGATIVE); ECSTASY MDMA SCREEN URINE NEGATIVE (NEGATIVE); OPIATES URINE SCREEN NEGATIVE (NEGATIVE); PHENCYCLIDINE URINE SCREEN NEGATIVE (NEGATIVE)
[2024-02-19 08:21] LABS: BACTERIA URINE 4+; RBC URINE 15-25 /hpf (0-2); SQUAMOUS EPITHELIAL CELL URINE FEW /lpf (RARE/1+); WBC URINE TNTC /hpf (0-2); YEAST URINE NONE SEEN
[2024-02-19 12:23] LABS: POTASSIUM 4.4 mEq/L (3.5-5.1)
[2024-02-19 12:24] LABS: CALCIUM 8.6 mg/dL (8.7-10.4)
[2024-02-19] MEDS: HYDRALAZINE HCL 25MG TABLET PO SCH (13:04)
[2024-02-19 13:28] LABS: CREATININE 8.4 mg/dL (0.6-1.3)
[2024-02-19 18:41] LABS: POTASSIUM 5.4 mEq/L (3.5-5.1)
[2024-02-19 20:37] LABS: ANISOCYTOSIS 2+; PLATELET ESTIMATE NORMAL
[2024-02-20] VITALS (16 sets, daily range): BP systolic 121–145; BP diastolic 67–92; PULSE 74–84; RESP 15–25; TEMP 36.50292–36.9474; O2SAT 90–100
[2024-02-20] MEDS: CEFTRIAXONE 1GM/50ML 50 ML IV SCH (17:49)
[2024-02-20 21:39] LABS: CHLORIDE 99 mEq/L (98-107); SODIUM 136 mEq/L (136-145)
[2024-02-20 21:40] LABS: CARBON DIOXIDE 23 mEq/L (21-32)
[2024-02-20 21:41] LABS: CALCIUM 7.9 mg/dL (8.7-10.4)
[2024-02-20 21:45] LABS: GLUCOSE 150 mg/dL (70-105); UREA NITROGEN BLOOD 92 mg/dL (9-23)
[2024-02-20 21:47] LABS: ALANINE AMINOTRANSFERASE 17 IU/L (10-49); ALBUMIN 3.7 g/dL (3.2-4.8); ASPARTATE AMINOTRANSFERASE 17 IU/L (<34); BILIRUBIN TOTAL 0.2 mg/dL (0.1-1.0); PROTEIN TOTAL 7.8 g/dL (6.0-8.3)
[2024-02-20 21:58] LABS: POTASSIUM 6.7 mEq/L (3.5-5.1)
[2024-02-20 21:59] LABS: CREATININE 10.8 mg/dL (0.6-1.3)
[2024-02-20] MEDS: SODIUM POLYSTYRENE SULFONATE 15 G/60 ML BOT PO NR (23:34)
[2024-02-20] MEDS: ACETAMINOPHEN 325MG TABLET PO PRN (23:38)
[2024-02-21] VITALS (20 sets, daily range): BP systolic 93–168; BP diastolic 52–119; PULSE 75–90; RESP 12–20; TEMP 36.28068–37.00296; O2SAT 83–97
[2024-02-21 00:05] LABS: HEMATOCRIT. 32.4 % (42.0-52.0); HEMOGLOBIN. 9.7 g/dL (14.0-18.0); MEAN CORPUSCULAR HEMOGLOBIN 25.7 pg (28.0-32.0); MEAN CORPUSCULAR VOLUME 85.7 fL (80.0-94.0); MEAN PLATELET VOLUME 7.8 fl (7.4-10.4); PLATELET 182 x1000/uL (130-400); RED BLOOD CELL COUNT 3.78 mill/uL (4.7-6.1); RED CELL DISTRIBUTION WIDTH 20.9 % (11.6-14.6); WHITE BLOOD COUNT 6.3 x1000/uL (4.5-11.0)
[2024-02-21] MEDS: DEXTROSE 50% WATER 50ML SYRINGE IV NR (00:06)
[2024-02-21] MEDS: INSULIN REGULAR (HUMULIN R) 1000UNITS/10ML VIAL IV NR (00:06)
[2024-02-21] MEDS: CALCIUM CHLORIDE 1GM/10ML SYR IV NR (00:06)
[2024-02-21 00:07] LABS: DIFFERENTIAL COMMENT 1
[2024-02-21 01:16] LABS: PLATELET ESTIMATE NORMAL
[2024-02-21 01:18] LABS: HYPOCHROMASIA 1+
[2024-02-21 01:19] LABS: ANISOCYTOSIS 2+
[2024-02-21 08:05] LABS: POTASSIUM 5.9 mEq/L (3.5-5.1)
[2024-02-21 08:27] LABS: HEMATOCRIT. 30.1 % (42.0-52.0); HEMOGLOBIN. 9.6 g/dL (14.0-18.0); MEAN CORPUSCULAR HEMOGLOBIN 26.2 pg (28.0-32.0); MEAN CORPUSCULAR HGB CONC 31.7 g/dL (31.0-37.0); MEAN CORPUSCULAR VOLUME 82.6 fL (80.0-94.0); MEAN PLATELET VOLUME 8.4 fl (7.4-10.4); PLATELET 195 x1000/uL (130-400); RED BLOOD CELL COUNT 3.65 mill/uL (4.7-6.1); WHITE BLOOD COUNT 6.1 x1000/uL (4.5-11.0)
[2024-02-21 09:01] LABS: DIFFERENTIAL COMMENT 1
[2024-02-21] MEDS ORDERED: NITR-87 MT (12:41)
[2024-02-21 14:39] LABS: HYPOCHROMASIA 1+; MICROCYTOSIS 1+; PLATELET ESTIMATE NORMAL
[2024-02-21 16:47] LABS: POTASSIUM 4.9 mEq/L (3.5-5.1)
== END 2024-02-21 16:05 | disposition home or self-care (01) | DRG 280 ==
LOC: ER 01:58 → 7EST 04:10 → 5EST 22:13
PROVIDERS: ADMIT Preventive Medicine Clinical Informatics; ATTEND Preventive Medicine Clinical Informatics
PROC: 5A1D70Z Performance of Urinary Filtration, Intermittent, Less than 6 Hours Per Day (ICD-10-PCS; 2024-02-17)
PROC: 5A09357 Assistance with Respiratory Ventilation, Less than 24 Consecutive Hours, Continuous Positive Airway Pressure (ICD-10-PCS; principal; 2024-02-18)
PROC: 5A1D70Z Performance of Urinary Filtration, Intermittent, Less than 6 Hours Per Day (ICD-10-PCS; 2024-02-19)
PROC: 5A1D70Z Performance of Urinary Filtration, Intermittent, Less than 6 Hours Per Day (ICD-10-PCS; 2024-02-21)
DX: I13.2 Hypertensive heart and chronic kidney disease with heart failure and with stage 5 chronic kidney disease, or end stage renal disease (principal); G93.41 Metabolic encephalopathy; I21.A1 Myocardial infarction type 2; N18.6 End stage renal disease; I50.23 Acute on chronic systolic (congestive) heart failure; J96.21 Acute and chronic respiratory failure with hypoxia; Z68.43 Body mass index [BMI] 50.0-59.9, adult; N39.0 Urinary tract infection, site not specified; E87.29 Other acidosis; Z68.44 Body mass index [BMI] 60.0-69.9, adult; E11.22 Type 2 diabetes mellitus with diabetic chronic kidney disease; D63.1 Anemia in chronic kidney disease; Z20.822 Contact with and (suspected) exposure to COVID-19; E87.5 Hyperkalemia; I25.10 Atherosclerotic heart disease of native coronary artery without angina pectoris; E66.01 Morbid (severe) obesity due to excess calories; E11.51 Type 2 diabetes mellitus with diabetic peripheral angiopathy without gangrene; I27.20 Pulmonary hypertension, unspecified; I45.10 Unspecified right bundle-branch block; E78.5 Hyperlipidemia, unspecified; I34.0 Nonrheumatic mitral (valve) insufficiency; Z89.512 Acquired absence of left leg below knee; Z89.511 Acquired absence of right leg below knee; Z99.2 Dependence on renal dialysis; Z95.1 Presence of aortocoronary bypass graft; Z91.148 Patient's other noncompliance with medication regimen for other reason; Z79.899 Other long term (current) drug therapy
CPT/HCPCS: 36415; 36600; 71045; 80048; 80053; 80061; 80076; 80305; 80320; 81003; 82375; 82550; 82553; 82805; 82962; 83605; 83735; 83880; 84100; 84132; 84145; 84484; 85025; 86705; 86709; 87077; 87186; 87340; 87426; 90935; 93005; 93306; 94070; 94640; 94660; 99285; A4606; A4663; A6261; J0360; J0610; J0696; J1650; J1815; J1940; J3490; G0480